=== PATIENT | male | born 1995 | race Two or more races ===

== ENCOUNTER 2021-03-09 10:11 | Emergency (ER) | payer MEDICAID, OTHER ==
[~2021-03-09] VITALS: Ht 188 cm; Wt 106.6 kg
[2021-03-09] MEDS ORDERED: ASPirin 81 mg TAB PO ONE (11:00)
[2021-03-09 11:21] LABS: Basophils # (auto) 0.1 10 ^3/uL (0-0.2); Eosinophils # (auto) 0.1 10 ^3/uL (0-0.8); Nucleated Red Blood Cells % 0.1 %
[2021-03-09 11:22] LABS: Basophils % (auto) 1.1 % (0.0-2.0); Eosinophils % (auto) 1.3 % (0.0-7.0); Hematocrit 47.4 % (41.0-53.0); Hemoglobin 17.1 g/dL (13.5-17.5); Lymphocytes # (auto) 1.4 10 ^3/uL (0.4-5.4); Lymphocytes % (auto) 20.9 % (10.0-50.0); Mean Corpuscular Volume 97.3 fL (80.0-100.0); Monocytes # (auto) 0.7 10 ^3/uL (0-1.3); Neutrophils # (auto) 4.5 10 ^3/uL (1.6-8.6); Neutrophils % (auto) 66.7 % (37.0-80.0); Red Blood Cells 4.88 10^6/uL (4.5-5.90); Red Cell Distribution Width 13.1 % (11.8-14.3); White Blood Cell 6.8 10^3/uL (4.4-10.8)
[2021-03-09 11:36] VITALS: BP 127/91
[2021-03-09 11:55] LABS: Albumin 3.9 g/dL (3.4-5.0); Anion Gap 7 (5-15); Blood Urea Nitrogen 9 mg/dL (7-18); Calcium 8.8 mg/dL (8.5-10.1); Carbon Dioxide 25 mmol/L (21-32); Chloride 106 mmol/L (98-107); Glucose 89 mg/dL (74-106); Potassium 3.7 mmol/L (3.5-5.1); Sodium 138 mmol/L (136-145)
[2021-03-09 12:06] LABS: Alanine Aminotransferase 89 U/L (16-61); Alkaline Phosphatase 100 U/L (45-117); Aspartate Aminotransferase 107 U/L (15-37); BUN/Creatinine Ratio 10.1; Bilirubin, Total 1.3 mg/dL (0.2-1.0); GFR African American 132 mL/min; GFR Non-African American 109 mL/min; Total Protein 7.9 g/dL (6.4-8.2)
== END 2021-03-09 16:30 | disposition left against medical advice (07) ==
LOC: ER 10:11
DX: R07.89 Other chest pain (principal); R11.2 Nausea with vomiting, unspecified
CPT/HCPCS: 36415; 80053; 84484; 85025; 93005